=== PATIENT | male | born 1980 | race Caucasian/White ===

== ENCOUNTER 2018-10-18 13:18 | Emergency (ER) | payer SELFPAY ==
[~2018-10-18] VITALS: Ht 177.8 cm; Wt 96.6 kg
[~2018-10-18 13:18] MED LIST: FOLIC ACID1 MG PO
[2018-10-18] MEDS ORDERED: NORCO 5-325 TA1 EACH PO (18:09)
== END 2018-10-18 18:19 | disposition home or self-care (01) ==
LOC: ED 13:18
DX: M87.88 Other osteonecrosis, other site (principal); I10 Essential (primary) hypertension; F17.200 Nicotine dependence, unspecified, uncomplicated
CPT/HCPCS: 73502; 99283-25; 99406

== ENCOUNTER 2019-04-20 11:23 | Emergency (ER) | payer OTHER ==
[~2019-04-20] VITALS: Ht 177.8 cm; Wt 96.6 kg
[~2019-04-20 11:23] MED LIST changes: +NORCO 5-325 TA1 EACH PO
[2019-04-20] MEDS ORDERED: NORCO 5-325 TA1 EACH PO (13:13)
[2019-05-10] MEDS ORDERED: NORCO 7.5-3251 EACH PO (10:24)
[2019-05-15] MEDS ORDERED: OXYCODONE HCL5 MG PO (11:41)
[2019-05-15] MEDS ORDERED: DICLOFENAC SODI75 MG PO (11:42)
== END 2019-04-20 14:02 | disposition home or self-care (01) ==
LOC: ED 11:23
DX: S92.324A Nondisplaced fracture of second metatarsal bone, right foot, initial encounter for closed fracture (principal); S92.334A Nondisplaced fracture of third metatarsal bone, right foot, initial encounter for closed fracture; S82.841A Displaced bimalleolar fracture of right lower leg, initial encounter for closed fracture; W01.0XXA Fall on same level from slipping, tripping and stumbling without subsequent striking against object, initial encounter; I10 Essential (primary) hypertension; F17.200 Nicotine dependence, unspecified, uncomplicated
CPT/HCPCS: 73590; 73610; 73630; 99283; A9270

== ENCOUNTER 2021-10-04 09:53 | Inpatient (IN) | payer OTHER ==
[~2021-10-04] VITALS: Ht 177.8 cm; Wt 96.0 kg
--- NOTE | ~2021-10-04 | CONS ---
[facility] [address] [place], [place] [address] Draft DATE OF CONSULTATION: 10/31/2021 REQUESTING PHYSICIAN: Dr. Mccarthy. PROBLEM: Anemia and mucoid episodic rectal bleeding. HISTORY OF PRESENT ILLNESS: This 41-year-old white man has numerous medical problems. He has been admitted for nearly a month, initially presenting under the service of Dr. Mccarthy with the weakness. He has chronic alcoholism, episodic alcohol withdrawal previously and was found on initial emergency room evaluation of hyponatremia with a sodium of 110. Clinical findings of hepatitis and anemia. He is admitted for further evaluation and care. The patient has been treated for the past number of weeks for a myriad of issues, all of them coming into excellent control. 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 All of these issues have much improved, however, he has had some episodes of mucoid blood per rectum and was found to have progressive anemia. His hematocrit a few days ago is 25.2, drifting now to 22.7. His platelet count is normal at 264,000. His white count is normal at 5.4. Coag studies show an INR of 1.12, protime of 14.5. His chem profile is reasonably normal now. Glucose 109, bilirubin is 2.7, down from previously 3.9 and as high as 11.9 on October 08, 2021. He still has somewhat elevated liver enzymes, but they are much improved including alkaline phosphatase now of 247. The patient tells me he has never had upper or lower endoscopic evaluations. He has had no hematemesis. He is somewhat vague as to the recognition of bloody mucoid stool. He does not have diarrhea. The patient does admit to somewhat of a phobia of "needles." REVIEW OF SYSTEMS: He denies any dysphagia or hematemesis. Has no epigastric pain particularly. Denies any rectal or anorectal pain. PHYSICAL EXAMINATION: VITAL SIGNS: His temperature is currently 98.5, pulse of 91, blood pressure 117/58. NECK: Trachea is midline. He has a trista complexion and findings suggestive of rosacea. Trachea is midline. CHEST: Clear. PATIENT NAME: MARY JO GALEANO CONSULTATION DATE OF : 80 REPORT #: [id number] PHYSICIAN: HANSA SHELDON MD PCP: UMANG MCCARTHY MD REPORT IS CONFIDENTIAL AND NOT TO BE RELEASED WITHOUT AUTHORIZATION [facility] [address] [place], [place] [address] Draft HEART: Regular without murmur. ABDOMEN: Nondistended and soft. Easily palpated. I detect no ascites. EXTREMITIES: Show no clubbing, cyanosis, or edema. There is no evidence of caput medusae. Lower extremities show no sign of pathologic edema. LABORATORY DATA: Lab studies currently show a white count of 5.4, hematocrit 22.7, platelets 264,000, previously as low as 44,000 on October 12. His creatinine is 0.7, glucose 109, bilirubin 2.7. Initial tox screen on December 04 negative except for elevated alcohol and also positive for marijuana. Scope and serology were negative. Urinalysis at admission showed large amount of blood, red cells 7 to 11 per high-powered field, previously 21 to 40 per high-powered field. ASSESSMENT: His drift downward of hematocrit combined with episodic mucoid bloody stool warrants evaluation. He has overcome a number of significant illnesses during the course of his hospitalization, many of them related to alcohol abuse to begin with. I would recommend upper endoscopy and colonoscopy as has been suggested by Dr. Mccarthy. Discussed this with the patient in detail. Reviewed the need for bowel prep to include MiraLax based prep, which he should tolerate well. I reviewed this with Dr. Mccarthy as well. The risks of bleeding, infection, and perforation were reviewed with him. Given his numerous medical issues he will certainly have anesthesia support with propofol infusional sedation, we will give stress dose steroids and advance to. He understands the recommendation and wishes to proceed. Hansa Sheldon MD /RAGHAVL /[id number] cc: Umang Mccarthy MD Copies: UMANG MCCARTHY MD ~ PATIENT NAME: MARY JO GALEANO CONSULTATION DATE OF : 80 REPORT #: [id number] PHYSICIAN: HANSA SHELDON MD PCP: UMANG MCCARTHY MD REPORT IS CONFIDENTIAL AND NOT TO BE RELEASED WITHOUT AUTHORIZATION
--- NOTE | ~2021-10-04 | OR ---
[facility] [address] [place], [place] [address] Draft DATE OF OPERATION: 10/04/2021 SURGEON: Hansa Sheldon MD PREOPERATIVE DIAGNOSES: 1. Anemia with episodic minimal rectal bleeding. 2. Multiple medical problems including adrenal insufficiency, chronic alcoholism (detoxified) and more. POSTOPERATIVE DIAGNOSES: 1. Mild distal esophagitis. 2. Mild sigmoid and rectal inflammation and internal hemorrhoids (slightly inflamed). PROCEDURES: 1. Esophagogastroduodenoscopy with biopsy. 2. Total colonoscopy to cecum with biopsies. ANESTHESIA: Intravenous sedation; propofol infusion, Hansa Watson CRNA and preoperative hydrocortisone 100 mg IV. INDICATION: This 41-year-old white man has been hospitalized since October 04, nearly one month. He presented with hypotension, numerous medical problems including chronic alcoholism. He has gone through an extensive evaluation, which shows him to have adrenal insufficiency for which he is now treated and has been detoxified from his alcohol problem. He has recently had progressive anemia and some episodes of rectal bleeding. He is admitted to undergo upper endoscopy and colonoscopy to better characterize the problem. FINDINGS: Upper endoscopy showed no specific abnormality to account for any anemia. He did have mild distal esophagitis. There were no esophageal varices. On colonoscopy, the prep was quite excellent. Complete colonoscopy was undertaken to the cecum without question. He had mild inflammation of the sigmoid and rectum and did have internal hemorrhoids, which appeared to have some inflammation, but no sign of active bleeding at this time. DESCRIPTION OF PROCEDURE: The patient was brought to the endoscopy suite, and given preoperative hydrocortisone PATIENT NAME: MARY JO GALEANO OPERATIVE REPORT DATE OF : 80 REPORT #: [id number] PHYSICIAN: HANSA SHELDON MD PCP: UMANG MCCARTHY MD REPORT IS CONFIDENTIAL AND NOT TO BE RELEASED WITHOUT AUTHORIZATION [facility] [address] [place], [place] [address] Draft 100 mg IV based on his adrenal insufficiency issues. He was given intravenous sedation with propofol infusional technique to the point of slurred speech and nystagmus. After satisfactory sedation under full cardiopulmonary monitoring, a bite block was placed. An Olympus video upper endoscope was passed in the hypopharynx. The vocal cords appeared normal. Scope was advanced to the esophagus, throughout its length it was normal other than mild distal esophagitis. Quite notably he had no esophageal varices. The scope was passed through the stomach, which was insufflated with air. There is minimal antral inflammation. The pylorus was normal. Scope was passed through into the duodenum. The duodenal was entirely normal. Scope was withdrawn and biopsies taken of the antrum for both VALARIE and pathologic testing. Retroflexed view showed a reasonably good flap valve. The scope was withdrawn to the distal esophagus where biopsies were obtained. Careful withdrawal showed no other abnormality. Plans were then made for colonoscopy. Digital rectal examination was undertaken which was normal. An Olympus video colonoscope was passed in the rectum and manipulated throughout the colon ultimately intubating the cecum itself. The ileocecal valve and appendiceal orifice were normal. Scope was withdrawn from that point. Examination throughout showed no sign of polyps or diverticula but in the sigmoid and rectum was mild inflammatory change, it is uncertain if this is a pathologic process or simply bowel prep related. Retroflexed view confirmed internal hemorrhoids, which were somewhat inflamed, but not bleeding. The scope was removed and the patient was taken to the recovery room in good condition. CONCLUDING DIAGNOSIS: Most likely bleeding related to hemorrhoids or possibly mild proctitis. PLAN: Recommend high-fiber diet and expectant management, pending biopsies. MD ANNE Zepeda/RAGHAVL /[id number] cc: Umang Mccarthy MD PATIENT NAME: MARY JO GALEANO OPERATIVE REPORT DATE OF : 80 REPORT #: [id number] PHYSICIAN: HANSA SHELDON MD PCP: UMANG MCCARTHY MD REPORT IS CONFIDENTIAL AND NOT TO BE RELEASED WITHOUT AUTHORIZATION [address] [address] Draft Copies: UMANG MCCARTHY MD ~ PATIENT NAME: MARY JO GALEANO OPERATIVE REPORT DATE OF : 80 REPORT #: [id number] PHYSICIAN: HANSA SHELDON MD PCP: UMANG MCCARTHY MD REPORT IS CONFIDENTIAL AND NOT TO BE RELEASED WITHOUT AUTHORIZATION
[~2021-10-04 09:53] MED LIST changes: +DICLOFENAC SODI75 MG PO; +NORCO 7.5-3251 EACH PO; +OXYCODONE HCL5 MG PO
--- NOTE | 2021-10-05 13:45 | EKG ---
[facility] [address] [facility] [place] [address] Signed Normal sinus rhythm Normal ECG No previous ECGs available Confirmed by UMANG MCCARTHY MD ([id number]) on 10/05/2021 1:45:13 PM Electronically Signed By: UMANG MCCARTHY MD 10/05/21 1345 PATIENT NAME: MARY JO GALEANO Electrocardiogram DATE OF : 80 PHYSICIAN: UMANG MCCARTHY MD REPORT #: [id number] REPORT IS CONFIDENTIAL AND NOT TO BE RELEASED WITHOUT AUTHORIZATION
[2021-11-03] MEDS ORDERED: NICOTINE PATCH1 EACH TD (10:02)
[2021-11-03] MEDS ORDERED: NICOTINE LOZENGE4 MG BUCCAL (10:02)
[2021-11-03] MEDS ORDERED: ARTIFICIAL TEAR15 M3 OU (10:03)
[2021-11-03] MEDS ORDERED: ARTHRICREAM85 GM TOP (10:03)
[2021-11-03] MEDS ORDERED: CALCIUM CARBON200 MG PO (10:03)
[2021-11-03] MEDS ORDERED: METAMUCIL PACK3.4 GM PO (10:04)
[2021-11-03] MEDS ORDERED: PREDNISOLO15 MG/5 ML PO (10:06)
[2021-11-03] MEDS ORDERED: PANTOPRAZOLE SO40 MG PO (10:06)
[2021-11-03] MEDS ORDERED: METRONIDAZOLE45 GM TOP (10:07)
[2021-11-03] MEDS ORDERED: VITAMIN B-1100 MG PO (10:07)
[2021-11-03] MEDS ORDERED: VITAMIN D21250 MCG PO (10:09)
[2021-11-03] MEDS ORDERED: ANTI-FUNGAL POW71 GM TOP (10:10)
[2021-11-03] MEDS ORDERED: LOPERAMIDE2 MG PO (10:10)
--- NOTE | 2021-11-04 18:00 | PATH ---
[facility] [address] [place], [place] [address] Signed SPECIMEN(S): A ANTRUM/PYLORUS BIOPSY SPECIMEN(S): B LOW ESOPHAGEAL BIOPSY SPECIMEN(S): C SIGMOID BIOPSY SPECIMEN(S): D RECTAL BIOPSY SPECIMEN SOURCE: A. ANTRUM/PYLORUS BIOPSY B. LOW ESOPHAGEAL BIOPSY C. SIGMOID BIOPSY D. RECTAL BIOPSY CLINICAL HISTORY: Severe hyponatremia. Pre: Anemia and mucoid episodic rectal bleeding. Post: Mild distal esophagitis, mild proctitis, internal hemorrhoids. FINAL PATHOLOGIC DIAGNOSIS: A. Stomach, antrum/pylorus, biopsy: - No significant histopathologic alterations. B. Low esophagus, biopsy: - Portions of unremarkable squamous mucosa. C. Colon, sigmoid, biopsy: - No significant histopathology. D. Rectum, biopsy: - No significant histopathologic alterations. COMMENT: The sections through the gastric biopsies show fragments of histologically unremarkable antral mucosa. There is no evidence of acute or chronic inflammation. There is no evidence of H. pylori, intestinal metaplasia, abnormal infiltrates or neoplasia. The esophageal biopsy shows normal-appearing squamous epithelium. There is no evidence of acute or chronic inflammation. The sections from the sigmoid colon specimen contain architecturally normal colonic mucosa without crypt distortion. There is no acute or chronic inflammation. There is no evidence of microscopic colitis. There are no abnormal organisms or infiltrates. There are no polyps or neoplasms. The sections from the rectal specimen are architecturally normal without crypt distortion. There is no acute or chronic inflammation. There is no evidence of microscopic colitis. There are no abnormal organisms or infiltrates. There is no evidence of polyps or PATIENT NAME: MARY JO GALEANO PATHOLOGY DATE OF : 80 REPORT #: [id number] PHYSICIAN: FELIX RIVERS PCP: UMANG MCCARTHY MD REPORT IS CONFIDENTIAL AND NOT TO BE RELEASED WITHOUT AUTHORIZATION [facility] [address] [place], [place] [address] Signed neoplasia. TWK:[id number]:[id number] MICROSCOPIC EXAMINATION: Histologic sections of all submitted blocks are examined by light microscopy. These findings, together with the gross examination, support the pathologic diagnosis. GROSS DESCRIPTION: Four specimens are received in four containers, labeled "SH." A. The specimen, labeled "SH, antrum biopsy," is received in formalin and consists of two andujar soft tissue fragments that measure 0.2 cm in greatest dimension. The specimen is entirely submitted in cassette (A1). B. The specimen, labeled "SH, low esophagus biopsy," is received in formalin and consists of one andujar soft tissue fragment that measures 0.2 cm in greatest dimension. The specimen is entirely submitted in cassette (B1). C. The specimen, labeled "SH, sigmoid colon biopsy," is received in formalin and consists of two andujar soft tissue fragments that measure 0.1-0.2 cm in greatest dimension. The specimen is entirely submitted in cassette (C1). D. The specimen, labeled "SH, rectal biopsy," is received in formalin and consists of two andujar soft tissue fragments that measure 0.2 cm in greatest dimension. The specimen is entirely submitted in cassette (D1). JS (under the direct supervision of a pathologist) The Gross Description was prepared using a voice recognition system. The report was reviewed for accuracy; however, sound-alike word errors, addition and/or deletions may occur. If there is any question about this report, please contact Client Services. PERFORMING LABORATORY: The technical component was performed by [facility], [address] [place] [id number] (CLIA# [id number]). The professional interpretation was performed by [facility], [facility], [address] [place] [address] (CLIA#: [id number]). Diagnostician: Cory Angel MD Pathologist PATIENT NAME: MARY JO GALEANO PATHOLOGY DATE OF : 80 REPORT #: [id number] PHYSICIAN: FELIX RIVERS PCP: UMANG MCCARTHY MD REPORT IS CONFIDENTIAL AND NOT TO BE RELEASED WITHOUT AUTHORIZATION [facility] [address] [place], [place] [address] Signed Electronically Signed 11/04/2021 Copies: ~ PATIENT NAME: MARY JO GALEANO PATHOLOGY DATE OF : 80 REPORT #: [id number] PHYSICIAN: [facility] PCP: UMANG MCCARTHY MD REPORT IS CONFIDENTIAL AND NOT TO BE RELEASED WITHOUT AUTHORIZATION
== END 2021-11-03 14:25 | disposition home or self-care (01) | DRG 432 ==
LOC: ED 09:53 → CCU 14:32 → MS 10-15 12:18
PROVIDERS: ADMIT Internal Medicine; ATTEND Internal Medicine
PROC: 0DB38ZX Excision of Lower Esophagus, Via Natural or Artificial Opening Endoscopic, Diagnostic (ICD-10-PCS; principal; 2021-10-04)
PROC: 0DB78ZX Excision of Stomach, Pylorus, Via Natural or Artificial Opening Endoscopic, Diagnostic (ICD-10-PCS; 2021-10-04)
PROC: 0DBP8ZX Excision of Rectum, Via Natural or Artificial Opening Endoscopic, Diagnostic (ICD-10-PCS; 2021-10-04)
PROC: 0DBN8ZX Excision of Sigmoid Colon, Via Natural or Artificial Opening Endoscopic, Diagnostic (ICD-10-PCS; 2021-10-04)
DX: K70.10 Alcoholic hepatitis without ascites (principal); J18.9 Pneumonia, unspecified organism; R57.8 Other shock; E87.1 Hypo-osmolality and hyponatremia; E27.40 Unspecified adrenocortical insufficiency; I82.612 Acute embolism and thrombosis of superficial veins of left upper extremity; F10.231 Alcohol dependence with withdrawal delirium; Z20.822 Contact with and (suspected) exposure to COVID-19; F10.229 Alcohol dependence with intoxication, unspecified; K20.90 Esophagitis, unspecified without bleeding; D53.9 Nutritional anemia, unspecified; K64.8 Other hemorrhoids; L71.9 Rosacea, unspecified; D69.6 Thrombocytopenia, unspecified; R13.12 Dysphagia, oropharyngeal phase; D46.Z Other myelodysplastic syndromes; E55.9 Vitamin D deficiency, unspecified; B35.4 Tinea corporis; F17.210 Nicotine dependence, cigarettes, uncomplicated; Z71.41 Alcohol abuse counseling and surveillance of alcoholic; Z79.899 Other long term (current) drug therapy; Y90.6 Blood alcohol level of 120-199 mg/100 ml
CPT/HCPCS: 00731; 36415; 36430; 36569; 70450; 71045; 76705; 80048; 80053; 81001; 82140; 82248; 82306; 82533; 82607; 82728; 83550; 83690; 83735; 83930; 84100; 84425; 84443; 84484; 84550; 85025; 85060; 85610; 86704; 86803; 86850; 86900; 86901; 86922; 87040; 87088; 87340; 87493; 92526; 92610; 93005; 93010; 93306; 93971; 94660; 96374; 96375; 97110; 97116; 97162; 97530; 97535; 99285-25; A9270; C1751; C9113; C9803; G0480; J0834; J1450; J1720; J1940; J1956; J2543; J2560; J2597; J2704; J3360; J3411; J3475; J3480; J7030; J7060; J7070; J7121; J7131; J7510; P9016; P9047; U0003

== ENCOUNTER 2021-11-06 18:33 | Emergency (ER) | payer OTHER ==
[~2021-11-06] VITALS: Ht 177.8 cm; Wt 95.2 kg
[~2021-11-06 18:33] MED LIST changes: +ANTI-FUNGAL POW71 GM TOP; +ARTHRICREAM85 GM TOP; +ARTIFICIAL TEAR15 M3 OU; +CALCIUM CARBON200 MG PO; +LOPERAMIDE2 MG PO; +METAMUCIL PACK3.4 GM PO; +METRONIDAZOLE45 GM TOP; +NICOTINE LOZENGE4 MG BUCCAL; +NICOTINE PATCH1 EACH TD; +PANTOPRAZOLE SO40 MG PO; +PREDNISOLO15 MG/5 ML PO; +VITAMIN B-1100 MG PO; +VITAMIN D21250 MCG PO
== END 2021-11-06 20:32 | disposition home or self-care (01) ==
LOC: ED 18:33
DX: K62.5 Hemorrhage of anus and rectum (principal); I10 Essential (primary) hypertension; F17.200 Nicotine dependence, unspecified, uncomplicated; Z79.899 Other long term (current) drug therapy
CPT/HCPCS: 36415; 80053; 85025; 85610; 85730; 86850; 86870; 86900; 86901; 99283; J7040

== ENCOUNTER 2022-05-03 08:21 | Emergency (ER) | payer OTHER ==
[~2022-05-03] VITALS: Ht 177.8 cm; Wt 95.2 kg
[2022-05-03] MEDS ORDERED: TADALAFIL10 MG PO (08:35)
[2022-05-03] MEDS ORDERED: DICLOFENAC SOD100 G1 TOP (08:35)
== END 2022-05-03 11:00 | disposition home or self-care (01) ==
LOC: ED 08:21
DX: R45.851 Suicidal ideations (principal); I10 Essential (primary) hypertension; F17.200 Nicotine dependence, unspecified, uncomplicated
CPT/HCPCS: 99284; A9270

== ENCOUNTER 2022-05-19 02:39 | Emergency (ER) | payer OTHER ==
[~2022-05-19] VITALS: Ht 177.8 cm; Wt 95.2 kg
[~2022-05-19 02:39] MED LIST changes: +DICLOFENAC SOD100 G1 TOP; +TADALAFIL10 MG PO
--- OUTSIDE RECORDS SUMMARY | 2022-05-19 02:42 | XMS ---
PreManage Notification: MARY JO GALEANO Security Tutorial Laboratory Supervisor Events No recent Security Events currently on file CRITERIA MET - [facility] - 2 Visits in 30 Days CARE PROVIDERS OMER BURRIS Seo Manager Current ALLIE FLORES Dejuan PHONE: [phone] THOR DE PAZ Internal Medicine Current PHONE: [phone] RONALD MARSHALL Nurse Practitioner Current PHONE: [phone] MIKHAIL TINAJERO Nurse Practitioner: Family Current PHONE: Unknown MALIHA SMITH Internal Medicine Current PHONE: [phone] RADHA ANDERSON Nurse Practitioner Current PHONE: [phone] HAYDEN DONOVAN I. Physician Breaker Machine Tender Current PHONE: Unknown JUAN NIELSEN Nurse Practitioner Current PHONE: Unknown GILLIAN SHARMA Nurse Practitioner Josesito GIRALDO PHONE: [phone] Nurse Marko DODSON PHONE: [phone] HERON [facility] Current PHONE: Unknown DENNIS [facility] Current PHONE: [phone] EPI AARON Physician Current PHONE: Unknown Vicente has no Care Guidelines for this patient. E.D. VISIT COUNT (12 MO.) 4 FRANCHESKA Henriquez TOTAL 4 NOTE: Visits indicate total known visits. ED/UCC VISIT TRACKING (12 MO.) 05/19/2022 02:40 [facility] [place] TYPE: Emergency COMPLAINT: - INTOXICATED 05/03/2022 08:22 [facility] [place] TYPE: Emergency COMPLAINT: - MULTIPLE COMPLAINTS DIAGNOSES: - Anxiety disorder, unspecified - Nicotine dependence, unspecified, uncomplicated - Suicidal ideations - Essential (primary) hypertension 11/06/2021 18:33 [facility] [place] TYPE: Emergency COMPLAINT: - BLOOD IN STOOL DIAGNOSES: - Hemorrhage of anus and rectum - Other care home (current) drug therapy - Essential (primary) hypertension - Nicotine dependence, unspecified, uncomplicated 10/04/2021 09:53 [facility] [place] TYPE: Emergency COMPLAINT: - WEAKNESS INPATIENT VISIT TRACKING (12 MO.) 10/04/2021 14:32 [facility] [place] TYPE: Medical Surgical COMPLAINT: - SEVERE HYPONATREMIA DIAGNOSES: - Tinea corporis - Esophagitis, unspecified without bleeding - Alcoholic hepatitis without ascites - Alcohol dependence with withdrawal, unspecified - Thrombocytopenia, unspecified - Alcohol abuse counseling and surveillance of alcoholic - Other myelodysplastic syndromes - Alcohol dependence with withdrawal delirium - Thrombocytopenia, unspecified - Pneumonia, unspecified organism - Dysphagia, oropharyngeal phase - Pneumonia, unspecified organism - Other hemorrhoids - Unspecified adrenocortical insufficiency - Hypo-osmolality and hyponatremia - Unspecified adrenocortical insufficiency - Vitamin D deficiency, unspecified - Nutritional anemia, unspecified - Vitamin D deficiency, unspecified - Contact with and (suspected) exposure to COVID-19 - Other shock - Alcoholic hepatitis without ascites - Hypo-osmolality and hyponatremia - Contact with and (suspected) exposure to COVID-19 - Blood alcohol level of 120-199 mg/100 ml - Esophagitis, unspecified without bleeding - Alcohol dependence with intoxication, unspecified - Alcohol dependence with withdrawal delirium - Dysphagia, oropharyngeal phase - Other myelodysplastic syndromes - Rosacea, unspecified - Nicotine dependence, cigarettes, uncomplicated - Acute embolism and thrombosis of superficial veins of left upper extremity - Other shock - Rosacea, unspecified - Acute embolism and thrombosis of superficial veins of left upper extremity - Other hemorrhoids - Alcohol dependence with intoxication, unspecified - Nicotine dependence, cigarettes, uncomplicated - Blood alcohol level of 120-199 mg/100 ml - Nutritional anemia, unspecified - Other intermodal truck driver (current) drug therapy - Tinea corporis [email or web address]
== END 2022-05-19 03:00 | disposition home or self-care (01) ==
LOC: ED 02:39
DX: F10.10 Alcohol abuse, uncomplicated (principal); I10 Essential (primary) hypertension; F17.200 Nicotine dependence, unspecified, uncomplicated
CPT/HCPCS: 99284

== ENCOUNTER 2022-05-25 06:47 | Emergency (ER) | payer OTHER ==
[~2022-05-25] VITALS: Ht 177.8 cm; Wt 95.2 kg
--- OUTSIDE RECORDS SUMMARY | 2022-05-25 06:54 | XMS ---
PreManage Notification: MARY JO GALEANO Security Schedule Hanger Events No recent Security Events currently on file CRITERIA MET - [facility] - 2 Visits in 30 Days CARE PROVIDERS OMER BURRIS Ultrasound Applications Specialist Current ALLIE FLORES Dejuan PHONE: [phone] THOR DE PAZ Internal Medicine Current PHONE: [phone] RONALD MARSHALL Nurse Practitioner Current PHONE: [phone] MIKHAIL TINAJERO Nurse Practitioner: Family Current PHONE: Unknown MALIHA SMITH Internal Medicine Current PHONE: [phone] RADHA ANDERSON Nurse Practitioner Current PHONE: [phone] HAYDEN DONOVAN I. Physician [place] Fishing Crew Member Current PHONE: Unknown JUAN NIELSEN Nurse Practitioner Current PHONE: Unknown GILLIAN SHARMA Nurse Practitioner Josesito GIRALDO PHONE: [phone] Nurse Marko DODSON PHONE: [phone] HERON [facility] Current PHONE: Unknown DENNIS [facility] Current PHONE: [phone] EPI AARON Physician Current PHONE: Unknown Vicente has no Care Guidelines for this patient. E.D. VISIT COUNT (12 MO.) 5 FRANCHESKA Henriquez TOTAL 5 NOTE: Visits indicate total known visits. ED/UCC VISIT TRACKING (12 MO.) 05/25/2022 06:48 [facility] [place] TYPE: Emergency COMPLAINT: - L HIP/KNEE PAIN, ANXIETY 05/19/2022 02:40 [facility] [place] TYPE: Emergency COMPLAINT: - INTOXICATED DIAGNOSES: - Essential (primary) hypertension - Alcohol abuse, uncomplicated - Nicotine dependence, unspecified, uncomplicated 05/03/2022 08:22 [facility] [place] TYPE: Emergency COMPLAINT: - MULTIPLE COMPLAINTS DIAGNOSES: - Suicidal ideations - Essential (primary) hypertension - Anxiety disorder, unspecified - Nicotine dependence, unspecified, uncomplicated 11/06/2021 18:33 [facility] [place] TYPE: Emergency COMPLAINT: - BLOOD IN STOOL DIAGNOSES: - Essential (primary) hypertension - Nicotine dependence, unspecified, uncomplicated - Hemorrhage of anus and rectum - Other half-way (current) drug therapy 10/04/2021 09:53 FR[facility] [place] TYPE: Emergency COMPLAINT: - WEAKNESS INPATIENT VISIT TRACKING (12 MO.) 10/04/2021 14:[address] [facility] [place] TYPE: Medical Surgical COMPLAINT: - SEVERE HYPONATREMIA DIAGNOSES: - Nutritional anemia, unspecified - Vitamin D [...] ml - Nutritional anemia, unspecified - Other oysterman (current) drug therapy - Tinea corporis - Tinea corporis - Esophagitis, unspecified without [...] adrenocortical insufficiency - Vitamin D deficiency, unspecified [email or web address]
[2022-05-25] MEDS ORDERED: VIAGRA25 MG PO (07:01)
[2022-05-25] MEDS ORDERED: HYDROCODON-ACE1 EA11 PO (08:19)
== END 2022-05-25 08:37 | disposition home or self-care (01) ==
LOC: ED 06:47
DX: M16.12 Unilateral primary osteoarthritis, left hip (principal); M25.562 Pain in left knee; I10 Essential (primary) hypertension; F17.200 Nicotine dependence, unspecified, uncomplicated; Z79.899 Other long term (current) drug therapy
CPT/HCPCS: 73502; 73560; 99283-25; A9270

== ENCOUNTER 2022-06-10 01:58 | Emergency (ER) | payer OTHER ==
[~2022-06-10] VITALS: Ht 177.8 cm; Wt 9533.1 kg
[~2022-06-10 01:58] MED LIST changes: +HYDROCODON-ACE1 EA11 PO; +VIAGRA25 MG PO
--- OUTSIDE RECORDS SUMMARY | 2022-06-10 02:01 | XMS ---
PreManage Notification: MARY JO GALEANO Security Labor Relations Consultant Events No recent Security Events currently on file CRITERIA MET - [facility] - 2 Visits in 30 Days CARE PROVIDERS OMER BURRIS Trust Administrative Assistant Current ALLIE FLORES Dejuan PHONE: [phone] THOR DE PAZ Internal Medicine Current PHONE: [phone] RONALD MARSHALL Nurse Practitioner Current PHONE: [phone] MIKHAIL TINAJERO Nurse Practitioner: Family Current PHONE: Unknown MALIHA SMITH Internal Medicine Current PHONE: [phone] RADHA ANDERSON Nurse Practitioner Current PHONE: [phone] HAYDEN DONOVAN I. Physician Gallery Director Current PHONE: Unknown JUAN NIELSEN Nurse Practitioner Current PHONE: Unknown GILLIAN SHARMA Nurse Practitioner Josesito GIRALDO PHONE: [phone] Nurse Marko DODSON PHONE: [phone] [facility] Current PHONE: Unknown DENNIS [facility] Current PHONE: [phone] EPI AARON Physician Current PHONE: Unknown Vicente has no Care Guidelines for this patient. E.D. VISIT COUNT (12 MO.) 6 FRANCHESKA Henriquez TOTAL 6 NOTE: Visits indicate total known visits. ED/UCC VISIT TRACKING (12 MO.) 06/10/2022 01:58 [facility] [place] TYPE: Emergency COMPLAINT: - HIP PAIN 05/25/2022 06:48 [facility] [place] TYPE: Emergency COMPLAINT: - L HIP/KNEE PAIN, ANXIETY DIAGNOSES: - Other senior living (current) drug therapy - Pain in left knee - Unilateral primary osteoarthritis, left hip - Nicotine dependence, unspecified, uncomplicated - Essential (primary) hypertension [facility] 02:[facility] [place] [facility] COMPLAINT: - INTOXICATED DIAGNOSES: - Alcohol abuse, uncomplicated - Nicotine dependence, unspecified, uncomplicated - Essential (primary) hypertension 05/03/2022 08:22 [facility] [place] [place] [facility]: [facility] COMPLAINT: - MULTIPLE COMPLAINTS DIAGNOSES: - Anxiety disorder, unspecified - Nicotine dependence, unspecified, uncomplicated - Suicidal ideations - Essential (primary) hypertension 11/06/2021 18:33 [facility] [place] [place] [facility]: [facility] COMPLAINT: - BLOOD IN STOOL DIAGNOSES: - Hemorrhage of anus and rectum - Other senior living (current) drug therapy - Essential (primary) hypertension - Nicotine dependence, unspecified, uncomplicated 10/04/2021 09:53 [facility] [place] TYPE: Emergency COMPLAINT: - WEAKNESS INPATIENT VISIT TRACKING (12 MO.) 10/04/2021 14:32 [facility] [place] TYPE: Medical Surgical COMPLAINT: - SEVERE HYPONATREMIA DIAGNOSES: - Other myelodysplastic syndromes - Alcohol dependence with withdrawal delirium - Alcohol abuse counseling and surveillance of alcoholic - Pneumonia, unspecified organism - Dysphagia, oropharyngeal phase - Thrombocytopenia, unspecified - Other hemorrhoids - Unspecified adrenocortical insufficiency - Pneumonia, unspecified organism - Unspecified adrenocortical insufficiency - Vitamin D deficiency, unspecified - Hypo-osmolality and hyponatremia - Nutritional anemia, unspecified - Vitamin D deficiency, unspecified - Other shock - Alcoholic hepatitis without ascites - Contact with and (suspected) exposure to COVID-19 - Hypo-osmolality and hyponatremia - Contact with and (suspected) exposure to COVID-19 - Esophagitis, unspecified without bleeding - Alcohol dependence with intoxication, unspecified - Blood alcohol level of 120-199 mg/100 ml - Alcohol dependence with withdrawal delirium - Dysphagia, oropharyngeal phase - Other myelodysplastic syndromes - Nicotine dependence, cigarettes, uncomplicated - Acute embolism and thrombosis of superficial veins of left upper extremity - Rosacea, unspecified - Rosacea, unspecified - Acute embolism and thrombosis of superficial veins of left upper extremity - Other shock - Other hemorrhoids - Alcohol dependence with intoxication, unspecified - Blood alcohol level of 120-199 mg/100 ml - Nutritional anemia, unspecified - Nicotine dependence, cigarettes, uncomplicated - Other senior living (current) drug therapy - Tinea corporis - Esophagitis, unspecified without bleeding - Alcoholic hepatitis without ascites - Tinea corporis - Alcohol dependence with withdrawal, unspecified - Thrombocytopenia, unspecified [email or web address]
== END 2022-06-10 04:11 | disposition home or self-care (01) ==
LOC: ED 01:58
DX: G89.29 Other chronic pain (principal); M25.552 Pain in left hip; I10 Essential (primary) hypertension; F17.200 Nicotine dependence, unspecified, uncomplicated; Z79.899 Other long term (current) drug therapy
CPT/HCPCS: 73502; 99283-25; A9270